=== PATIENT | female | born 1965 | race Caucasian/White ===

== ENCOUNTER 2017-08-16 05:45 | Day surgery (SDC) | payer OTHER ==
[~2017-08-16] VITALS: Ht 170.2 cm; Wt 200.9 kg
[~2017-08-16 05:45] MED LIST: AMLO5 PO; ARNUITY ELLIP100 MCG; BACL10 PO; BUDE6HFA INH; Biotin 800 Mcg1 EACH PO; DIPH50 PO; DOCU100 PO; Enalapril-Hctz1 EACH PO; GABA600 PO; METF500 PO; METO50ER PO; MONT10T PO; Mobic15 MG PO; RANI150 PO; Synthroid/Le0.075 MG PO; [UNRECOGNIZED DRUG - OTHER] PO
== END 2017-08-16 09:18 | disposition home or self-care (01) ==
LOC: ORSCMMR 05:45
PROVIDERS: Surgery
PROC: 0DJD8ZZ Inspection of Lower Intestinal Tract, Via Natural or Artificial Opening Endoscopic (ICD-10-PCS; principal; 2017-08-16 07:30)
DX: Z12.11 Encounter for screening for malignant neoplasm of colon (principal); E66.01 Morbid (severe) obesity due to excess calories; J45.909 Unspecified asthma, uncomplicated; E11.9 Type 2 diabetes mellitus without complications; G47.33 Obstructive sleep apnea (adult) (pediatric); I10 Essential (primary) hypertension; Z68.44 Body mass index [BMI] 60.0-69.9, adult; Z87.891 Personal history of nicotine dependence; Z79.84 Long term (current) use of oral hypoglycemic drugs; Z79.899 Other long term (current) drug therapy
CPT/HCPCS: 82947; 93005; 93010; J7120

== ENCOUNTER 2018-12-19 08:43 | Day surgery (SDC) | payer OTHER, SELFPAY ==
[~2018-12-19] VITALS: Ht 167.6 cm; Wt 130.0 kg
[~2018-12-19 08:43] MED LIST changes: +Neurontin600 MG PO
--- NOTE | 2018-12-19 09:51 | NUR ---
12/19/18 0951 Scott Shi 1ST IV ATTEMPT IN LFA UNSUCCESSFUL, [email or web address] 2ND IV ATTEMPT IN L[facility] SUCCESSFUL, [email or web address]
[2019-02-02] MEDS ORDERED: Flonase 0.05% N16 GM (11:22)
[2019-02-02] MEDS ORDERED: DOXE25 PO (11:22)
[2019-02-02] MEDS ORDERED: VITAMIN D3/CALCIUM PO (11:23)
[2019-02-02] MEDS ORDERED: Hair, Skin & N1 EACH PO (11:23)
[2019-02-02] MEDS ORDERED: Glucosamine &1 EACH PO (11:24)
[2019-02-02] MEDS ORDERED: Provera10 MG PO (11:24)
[2019-02-02] MEDS ORDERED: SUPER B PO (11:24)
== END 2018-12-19 13:18 | disposition home or self-care (01) ==
LOC: ORSCSDS 08:43
PROVIDERS: Podiatrist Foot & Ankle Surgery
PROC: 0QSP04Z Reposition Left Metatarsal with Internal Fixation Device, Open Approach (ICD-10-PCS; principal; 2018-12-19 10:00)
PROC: 0SRP0JZ Replacement of Right Toe Phalangeal Joint with Synthetic Substitute, Open Approach (ICD-10-PCS; principal; 2018-12-19 10:00)
DX: M21.612 Bunion of left foot (principal); M20.41 Other hammer toe(s) (acquired), right foot; G47.33 Obstructive sleep apnea (adult) (pediatric); E11.9 Type 2 diabetes mellitus without complications; J45.909 Unspecified asthma, uncomplicated; I10 Essential (primary) hypertension; E03.9 Hypothyroidism, unspecified; F41.8 Other specified anxiety disorders; Z79.899 Other long term (current) drug therapy; E66.01 Morbid (severe) obesity due to excess calories; Z68.42 Body mass index [BMI] 45.0-49.9, adult; Z87.891 Personal history of nicotine dependence
CPT/HCPCS: 82947; C1713; C1769; J0171; J0690; J2250; J2704; J3010

== ENCOUNTER 2019-02-19 12:17 | Day surgery (SDC) | payer OTHER ==
[~2019-02-19] VITALS: Ht 167.6 cm; Wt 125.7 kg
[~2019-02-19 12:17] MED LIST changes: +DOXE25 PO; +Flonase 0.05% N16 GM; +Glucosamine &1 EACH PO; +Hair, Skin & N1 EACH PO; +Provera10 MG PO; +SUPER B PO; +VITAMIN D3/CALCIUM PO
[2019-02-19] MEDS ORDERED: CYAN500 SL (12:49)
[2019-02-19] MEDS ORDERED: FOLI1 PO (12:49)
--- NOTE | 2019-02-19 13:00 | NUR ---
History, Chart, Medications and Allergies reviewed before start of procedure. Patient confirms NPO status and agrees with scheduled surgery. Lungs clear T/O to Auscultation. Patient reports completing Chlorhexadine shower X2 prior to admission to hospital. Pre-Op teaching done. Pt verbalizes understanding. NO JEWELRY, CONTACTS OR HEARING DEVICES PRESENT AT ADMIT. PATIENT HAS WELL FITTING UPPER PARTIAL, THAT WE WILL DISCUSS WITH DR RUEDA. GLASSES TO PACU DURING SURGERY.
--- NOTE | 2019-02-19 13:41 | NUR ---
DIRECTOR OF ACQUISITION MARKETING REPORT COMPLETED AT BEDSIDE, RN. PATIENT UP FOR UNMEASURED VOID.
[2019-02-20 04:44] LABS: BASOPHILS ABSOLUTE AUTO 0.02 K/mm3 (0.00-0.23); BASOPHILS PERCENT AUTO 0 % (0-2); EOSINOPHILS ABSOLUTE AUTO 0.04 K/mm3 (0.00-0.68); EOSINOPHILS PERCENT AUTO 0 % (0-6); Hematocrit 32.3 % (33.0-51.0); Hemoglobin 10.5 g/dL (11.5-16.0); IMMATURE GRAN ABSOLUTE AUTO 0.04 K/mm3 (0.00-0.10); IMMATURE GRAN PERCENT AUTO 0 % (0-1); LYMPHOCYTES ABSOLUTE AUTO 1.67 K/mm3 (0.84-5.20); LYMPHOCYTES PERCENT AUTO 13 % (21-46); MONOCYTES ABSOLUTE AUTO 1.18 K/mm3 (0.16-1.47); MONOCYTES PERCENT AUTO 9 % (4-13); Mean Corpuscular HGB 28.8 pg (26.0-34.0); Mean Corpuscular HGB Conc 32.5 g/dL (31.5-36.5); Mean Corpuscular Volume 89 fL (80-100); Mean Platelet Volume 10.2 fL (9.1-12.4); NEUTROPHILS PERCENT AUTO 78 % (41-73); Platelet Count 317 K/mm3 (150-400); RDW Coefficient Variation 14.6 % (11.7-14.2); RDW Standard Deviation 46.5 fL (35.1-46.3); Red Blood Cell Count 3.64 M/mm3 (3.80-5.20); White Blood Cell Count 13.25 K/mm3 (4.00-11.30)
[2019-02-20 05:05] LABS: Anion Gap 5 mmol/L (6-16); Blood Urea Nitrogen 21 mg/dL (8-24); Bun/Creatinine Ratio 20.8 (12.0-20.0); CO2, Blood 27 mmol/L (21-32); Calcium, Blood 9.1 mg/dL (8.5-10.1); Chloride, Blood 103 mmol/L (98-108); Creatinine, Blood 1.01 mg/dL (0.40-1.00); Glomerular Filtration Rate >60 (60-); Glucose, Blood 99 mg/dL (70-99); Potassium, Blood 3.7 mmol/L (3.5-5.5); Sodium, Blood 135 mmol/L (136-145)
--- NOTE | 2019-02-20 06:42 | NUR ---
SHIFT SUMMARY PATIENT WALKED SEVERAL TIMES TO THE BR AND DOWN THE REESE FOR ABOUT 20 FEET. HE PAIN IS BEING CONTROLED WITH THE SCHEDULED AND PRN MEDICATIONS. EATING AND DRINKING WELL. RT KNEE REMAINES BANDAGED WITHOUT DRAINAGE.
--- NOTE | 2019-02-20 07:00 | NUR ---
recvd report from previous shift VINICIO Brown. pt awake in bed, a/0 x4, pleasant/cooperative, rate pain at 3/10, voiding.
[2019-02-20] MEDS ORDERED: XARELTO20 MG PO (11:11)
[2019-02-20] MEDS ORDERED: Percocet 5-3251 EACH PO (11:12)
--- NOTE | 2019-02-20 14:00 | NUR ---
PT working with patient.
--- NOTE | 2019-02-20 15:30 | NUR ---
provided pt with discharge teaching/instructions, printed materials, discharge medications, provided with prescriptions. pt states understanding of instructions. peripheral IV removed WNL. pt's mother transferred pt's belongings to awaiting vehicle. pt transported to awaiting vehicle via wheelchair
== END 2019-02-20 15:40 | disposition home or self-care (01) ==
LOC: ORSCMMR 12:17 → ORD 13:00 → ORSCMMR 13:00 → ORD 13:40 → ORSCMMR 13:40 → SURS 16:58 → ORSCMMR 02-20 15:40
PROVIDERS: Orthopaedic Surgery
PROC: 0SRD0JA Replacement of Left Knee Joint with Synthetic Substitute, Uncemented, Open Approach (ICD-10-PCS; principal; 2019-02-19 13:40)
DX: M17.12 Unilateral primary osteoarthritis, left knee (principal); Z01.818 Encounter for other preprocedural examination; I10 Essential (primary) hypertension; E11.9 Type 2 diabetes mellitus without complications; G47.33 Obstructive sleep apnea (adult) (pediatric); E03.9 Hypothyroidism, unspecified; Z87.891 Personal history of nicotine dependence; J45.909 Unspecified asthma, uncomplicated; E66.01 Morbid (severe) obesity due to excess calories; Z68.41 Body mass index [BMI] 40.0-44.9, adult; Z79.899 Other long term (current) drug therapy
CPT/HCPCS: 36415; 73560-LT; 80048; 82947; 85025; 86850; 86900; 86901; 88300; 94640; 94760; 97110; 97116; 97162; 97530; C1776; J0171; J0690; J0735; J1100; J1885; J2250; J2405; J2704; J2795; J7120

== ENCOUNTER 2019-04-27 13:27 | Day surgery (SDC) | payer OTHER ==
[~2019-04-27 13:27] MED LIST changes: +CYAN500 SL; +FOLI1 PO; +Percocet 5-3251 EACH PO; +XARELTO20 MG PO
[2019-05-15] MEDS ORDERED: NEURONTIN600 MG PO (14:59)
[2019-05-15] MEDS ORDERED: ALBU90OI INH (15:00)
== END 2019-04-27 22:53 | disposition home or self-care (01) ==
LOC: US 13:27
DX: D11.0 Benign neoplasm of parotid gland (principal); J32.8 Other chronic sinusitis; D16.4 Benign neoplasm of bones of skull and face
CPT/HCPCS: 38505; 76942; 88307

== ENCOUNTER 2019-05-22 08:17 | Day surgery (SDC) | payer OTHER ==
[~2019-05-22] VITALS: Ht 167.6 cm; Wt 122.5 kg
[~2019-05-22 08:17] MED LIST changes: +ALBU90OI INH; +NEURONTIN600 MG PO
[2019-05-22] MEDS ORDERED: RIZATRIPTAN10 MG (08:58)
[2019-05-22] MEDS ORDERED: TOPI25C (08:58)
--- NOTE | 2019-05-22 12:46 | NUR ---
05/22/19 1246 Michelle Nelson PT HAD NO C/O PAIN OR NAUSEA T/O RECOVERY. DSG C/D/I AND HAD COPIES OF ALL INST
== END 2019-05-22 12:04 | disposition home or self-care (01) ==
LOC: ORSCSDS 08:17
PROVIDERS: Podiatrist Foot & Ankle Surgery
PROC: 0SGP04Z Fusion of Right Toe Phalangeal Joint with Internal Fixation Device, Open Approach (ICD-10-PCS; principal; 2019-05-22 09:45)
PROC: 0SRP0JZ Replacement of Right Toe Phalangeal Joint with Synthetic Substitute, Open Approach (ICD-10-PCS; principal; 2019-05-22 09:45)
PROC: 0SPP04Z Removal of Internal Fixation Device from Right Toe Phalangeal Joint, Open Approach (ICD-10-PCS; principal; 2019-05-22 09:45)
PROC: 0L8V0ZZ Division of Right Foot Tendon, Open Approach (ICD-10-PCS; principal; 2019-05-22 09:45)
DX: M20.41 Other hammer toe(s) (acquired), right foot (principal); I10 Essential (primary) hypertension; E11.9 Type 2 diabetes mellitus without complications; J45.909 Unspecified asthma, uncomplicated; G47.33 Obstructive sleep apnea (adult) (pediatric); E66.01 Morbid (severe) obesity due to excess calories; Z68.41 Body mass index [BMI] 40.0-44.9, adult; Z79.899 Other long term (current) drug therapy
CPT/HCPCS: 82947; C1713; J0171; J0690; J1100; J2250; J2405; J2704; J3010; J7120

== ENCOUNTER 2019-09-14 06:45 | Day surgery (SDC) | payer OTHER ==
[~2019-09-14] VITALS: Ht 172 cm; Wt 124.1 kg
[~2019-09-14 06:45] MED LIST changes: +RIZATRIPTAN10 MG PO; +TOPI25C PO
--- NOTE | 2019-09-14 07:27 | NUR ---
History, Chart, Medications and Allergies reviewed before start of procedure.Patient confirms NPO status and agrees with scheduled surgery. Ambulatory in Day Surgery. Patient States Post-Procedure ride home has been arranged WITH SON
== END 2019-09-14 22:41 | disposition home or self-care (01) ==
LOC: ORSCMMR 06:45 → ORD 08:30 → ORSCMMR 22:41
PROVIDERS: Surgery
PROC: 0D9Q7ZX Drainage of Anus, Via Natural or Artificial Opening, Diagnostic (ICD-10-PCS; principal; 2019-09-14 08:30)
DX: K61.0 Anal abscess (principal); G47.33 Obstructive sleep apnea (adult) (pediatric); E11.9 Type 2 diabetes mellitus without complications; I10 Essential (primary) hypertension; J45.909 Unspecified asthma, uncomplicated; E03.9 Hypothyroidism, unspecified; F41.8 Other specified anxiety disorders; E66.01 Morbid (severe) obesity due to excess calories; Z68.41 Body mass index [BMI] 40.0-44.9, adult; Z79.899 Other long term (current) drug therapy; Z87.891 Personal history of nicotine dependence
CPT/HCPCS: A9270-GY; J0295; J1100; J2250; J2405; J2704; J3010; J7120

== ENCOUNTER 2020-04-14 07:22 | Day surgery (SDC) | payer OTHER ==
[~2020-04-14] VITALS: Ht 170.2 cm; Wt 129.8 kg
[~2020-04-14 07:22] MED LIST changes: -BUDE6HFA INH; +Biotin800 MCG PO; +CALCIUM-FOLIC1 EACH PO; +FIBER FORMULA PO; +Lyrica100 MG PO; +MULTIPLE VITAM1 EACH PO; +SYMBICORT 160-4.6 GM INH; +Vitamin B Comple1 EA PO; +Voltaren100 GM TOP; +XARELTO10 MG PO
--- NOTE | 2020-04-14 08:14 | NUR ---
Ambulatory in Day Surgery History, Chart, Medications and Allergies reviewed before start of procedure. Lungs clear T/O to Auscultation. Pre-Op teaching done. Pt verbalizes understanding.
--- NOTE | 2020-04-14 12:13 | NUR ---
Discharge instructions reviewed with patient. Patient verbalizes understanding. Copy given to patient to take home. Discharged via wheelchair to private car for ride home.
== END 2020-04-14 12:15 | disposition home or self-care (01) ==
LOC: ORSCMMR 07:22 → ORD 09:00 → ORSCMMR 12:15
PROVIDERS: Surgery
PROC: 0FT44ZZ Resection of Gallbladder, Percutaneous Endoscopic Approach (ICD-10-PCS; principal; 2020-04-14 09:00)
DX: K80.10 Calculus of gallbladder with chronic cholecystitis without obstruction (principal); I10 Essential (primary) hypertension; E11.9 Type 2 diabetes mellitus without complications; E03.9 Hypothyroidism, unspecified; J44.9 Chronic obstructive pulmonary disease, unspecified; G47.33 Obstructive sleep apnea (adult) (pediatric); E66.01 Morbid (severe) obesity due to excess calories; Z68.41 Body mass index [BMI] 40.0-44.9, adult; Z87.891 Personal history of nicotine dependence; Z79.899 Other long term (current) drug therapy; Z85.3 Personal history of malignant neoplasm of breast
CPT/HCPCS: 82947; 88304; J0694; J1100; J1885; J2250; J2405; J2704; J2710; J3010; J7120

== ENCOUNTER → 2020-11-28 | Outpatient (CLI) | payer OTHER | LOC: LAB 18:12 → LAB SHORT 18:12 | DX: N89.8 Other specified noninflammatory disorders of vagina (principal) | CPT/HCPCS: 87070; 87205 ==

== ENCOUNTER → 2020-12-07 | Outpatient (CLI) | payer OTHER ==
[2020-12-08 09:26] LABS: Candida species (DNA Probe) Negative (NEGATIVE); G. vaginalis (DNA Probe) Negative (NEGATIVE); T. vaginalis (DNA Probe) Positive (NEGATIVE)
== END | disposition home or self-care (01) ==
LOC: LAB 16:33 → LAB SHORT 16:33
PROVIDERS: Obstetrics & Gynecology
DX: N89.8 Other specified noninflammatory disorders of vagina (principal)
CPT/HCPCS: 87480; 87510; 87660

== ENCOUNTER → 2021-01-11 | Outpatient (CLI) | payer OTHER ==
[2021-01-12 10:24] LABS: Candida species (DNA Probe) Negative (NEGATIVE); G. vaginalis (DNA Probe) Negative (NEGATIVE); T. vaginalis (DNA Probe) Positive (NEGATIVE)
== END | disposition home or self-care (01) ==
LOC: LAB 15:36 → LAB SHORT 15:36
PROVIDERS: Obstetrics & Gynecology
DX: Z11.3 Encounter for screening for infections with a predominantly sexual mode of transmission (principal); N89.8 Other specified noninflammatory disorders of vagina
CPT/HCPCS: 87070; 87205; 87480; 87510; 87660

== ENCOUNTER → 2021-08-22 | Outpatient (CLI) | payer OTHER | END | disposition home or self-care (01) | LOC: LAB SHORT 12:07 → PLD 12:07 | DX: L72.9 Follicular cyst of the skin and subcutaneous tissue, unspecified (principal) | CPT/HCPCS: 88304 ==

== ENCOUNTER → 2021-09-09 | Outpatient (CLI) | payer OTHER ==
[2021-09-09 15:57] LABS: Adenovirus F 40/41 Not Detected (NOT DETECT); Astrovirus Not Detected (NOT DETECT); Campylobacter Sp Not Detected (NOT DETECT); Cryptosporidium Not Detected (NOT DETECT); Cyclospora Cayetanensis Not Detected (NOT DETECT); E. Coli O157 Not Detected (NOT DETECT); Entamoeba Histolytica Not Detected (NOT DETECT); Enteroaggregative E. coli-EAEC Not Detected (NOT DETECT); Enteropathogenic E. coli-EPEC Not Detected (NOT DETECT); Enterotoxigenic E. coli-ETEC Not Detected (NOT DETECT); Giardia Lamblia Not Detected (NOT DETECT); Norovirus GI/GII Not Detected (NOT DETECT); Plesiomonas Shigelloides Not Detected (NOT DETECT); Rotavirus A Not Detected (NOT DETECT); Salmonella Sp Not Detected (NOT DETECT); Sapovirus Not Detected (NOT DETECT); Shiga Toxin-prod E. coli-STEC Not Detected (NOT DETECT); Shigella/Enteroin E. coli-EIEC Not Detected (NOT DETECT); Vibrio Cholerae Not Detected (NOT DETECT); Vibrio Sp Not Detected (NOT DETECT); Yersinia Enterocolitica Not Detected (NOT DETECT)
== END ==
LOC: LAB 06:00 → LAB SHORT 06:00
PROVIDERS: Family Medicine
DX: R19.7 Diarrhea, unspecified (principal)
CPT/HCPCS: 87324; 87507

== ENCOUNTER → 2021-10-07 | Outpatient (CLI) | payer OTHER ==
[2021-10-08 12:06] LABS: C DIFFICILE DNA POSITIVE (Negative)
== END | disposition home or self-care (01) ==
LOC: LAB 12:20 → LAB SHORT 12:20
PROVIDERS: Family Medicine
DX: A09 Infectious gastroenteritis and colitis, unspecified (principal)
CPT/HCPCS: 87324; 87493

== ENCOUNTER → 2021-12-13 | Outpatient (CLI) | payer OTHER ==
[2021-12-13 14:36] LABS: C DIFFICILE DNA POSITIVE (Negative)
== END | disposition home or self-care (01) ==
LOC: LAB SHORT 08:35 → EDSTATUS 12-11 14:55 → LAB FUT 12-11 14:55
PROVIDERS: Family Medicine
DX: R19.7 Diarrhea, unspecified (principal)
CPT/HCPCS: 87324; 87493

== ENCOUNTER 2022-10-11 08:41 | Inpatient (IN) | payer OTHER ==
[~2022-10-11] VITALS: Ht 162.6 cm; Wt 139.2 kg
[2022-10-11] VITALS (38 sets, daily range): BP systolic 53–152; BP diastolic 37–127
[2022-10-11 09:04] LABS: Hemoglobin 9.8 g/dL (11.5-16.0); Mean Corpuscular HGB 28.3 pg (26.0-34.0); Mean Corpuscular HGB Conc 30.6 g/dL (31.5-36.5); Mean Corpuscular Volume 93 fL (80-100); Mean Platelet Volume 10.9 fL (9.1-12.4); NRBC ABSOLUTE 0.06 K/mm3 (0.00-0.02); NRBC Auto 0.2 /100 WBC (0.0-0.2); Platelet Count 334 K/mm3 (150-400); RDW Coefficient Variation 14.6 % (11.7-14.2); RDW Standard Deviation 49.4 fL (35.1-46.3); Red Blood Cell Count 3.46 M/mm3 (3.80-5.20); White Blood Cell Count 28.72 K/mm3 (4.00-11.30)
[2022-10-11 09:08] LABS: Source, Urine Foley catheter
[2022-10-11 09:10] LABS: Calcium, Ionized (POC) 1.18 mmol/L (1.10-1.46); Chloride (POC) 111 mmol/L (98-108); Creatinine (POC) 0.9 mg/dL (0.6-1.0); Glucose (ISTAT POC) 151 mg/dL (70-99); Hemoglobin (POC) 10.9 g/dL (12.0-16.0); Potassium (POC) 3.7 mmol/L (3.5-5.5); Sodium (POC) 143 mmol/L (135-148); Total CO2 (POC) 16 mmol/L (21-32)
[2022-10-11 09:14] LABS: Appearance, Urine Clear (Clear); Bilirubin, Urine Neg (Neg); Blood, Urine 5+ (Neg); Color, Urine Amber (P-Yellow); Glucose Qualitative, Urine Neg (Neg); Ketones, Urine Neg (Neg); Leukocyte Esterase, Urine 2+ (Neg); Nitrite, Urine Neg (Neg); Protein, Urine 2+ (Neg); Urobilinogen, Urine 2+ (Normal)
[2022-10-11 09:18] LABS: PCO2 Arterial 36.4 mmHg (35-45); PO2 Arterial 263 mmHg (80-100); pH Blood Arterial 7.13 (7.35-7.45)
[2022-10-11 09:24] LABS: Amorphous Light (0-Heavy); Bacteria Few /hpf; Mucus Heavy (0-Heavy); Squamous Epithelial Cells Not Seen /hpf (Few)
[2022-10-11 09:25] LABS: Calcium Oxalate Crystals Rare /hpf
[2022-10-11 09:26] LABS: Albumin, Blood 1.4 g/dL (3.4-5.0); Albumin/Globulin Ratio 0.4 (0.8-1.8); Bilirubin, Total 0.8 mg/dL (0.1-1.0); Bun/Creatinine Ratio 11.2 (12.0-20.0); Calcium, Blood 8.3 mg/dL (8.5-10.1); Creatinine, Blood 0.89 mg/dL (0.40-1.00); Globulin, Blood 3.3 g/dL (2.2-4.0); Magnesium, Blood 2.3 mg/dL (1.6-2.4); Potassium, Blood 3.9 mmol/L (3.5-5.5); Total Protein, Blood 4.7 g/dL (6.4-8.2)
[2022-10-11 09:31] LABS: BAND PERCENT MAN 7 % (0-8); BASOPHILS PERCENT MAN 0 % (0-2); EOSINOPHILS PERCENT MAN 0 % (0-6); LYMPHOCYTES % ATYPICAL MANUAL 3 % (0-0); LYMPHOCYTES ABSOLUTE MAN 6.89 K/mm3 (0.84-5.20); LYMPHOCYTES PERCENT MAN 21 % (21-46); MONOCYTES ABSOLUTE MAN 1.14 K/mm3 (0.16-1.47); MONOCYTES PERCENT MAN 4 % (4-13); NEUTROPHILS ABSOLUTE MAN 20.67 K/mm3 (1.96-9.15); SEG NEUTROPHILS PERCENT MAN 65 % (41-73); TOTAL CELLS COUNTED 100
--- NOTE | 2022-10-11 10:10 | NUR ---
Patient's family is in the consult rm, Patient's mother Lady and son Cem are worried and have many questions. They share about the events that led to the patient's hospitalization and discuss the medical issues she has been experiencing over the last yr and a 1/2. I assure them about the excellence of our ED staff and the process of gathering data that makes for a challenging waiting period but is crucial for moving the patient toward the best plan of care. I normalize their experience and provide therapeutic listening and prayer. Family respond well and show signs of reduced stress.
[2022-10-11] MEDS ORDERED: OMEP20ER PO ×2 (12:24→12:28)
[2022-10-11] MEDS ORDERED: DOXE25 PO (12:27)
[2022-10-11] MEDS ORDERED: SUCR1 PO (12:27)
[2022-10-11] MEDS ORDERED: PREG200 PO (12:27)
[2022-10-11] MEDS ORDERED: PROC5 PO (12:28)
[2022-10-11 12:35] LABS: Bun/Creatinine Ratio 12.2 (12.0-20.0); Calcium, Blood 7.6 mg/dL (8.5-10.1); Creatinine, Blood 0.9 mg/dL (0.40-1.00); Potassium, Blood 4.1 mmol/L (3.5-5.5)
--- NOTE | 2022-10-11 13:27 | NUR ---
CARE ASSUMPTION PT ARRIVED TO ICU 7 FROM ER. PT IS ON VENT AC/VC+ 18/450/5.0 W 40% FIO2. PT HAS EYES OPEN W NO PUILLARY RESPONSE. PT HAS NO RESPONSE TO PAINFUL STIMULI. PT W NO GAG REFLEX. PT HAS RICK CATHETER THAT IS PATENT AND DRAINING. LEVOPHED GTT RUNNING AT [address] VALDEZ AT BEDSIDE.
[2022-10-11 13:44] LABS: Percent Saturation 61.1 % (15.0-50.0)
[2022-10-11 16:21] LABS: C DIFFICILE DNA POSITIVE (Negative)
--- NOTE | 2022-10-11 17:25 | NUR ---
pt on vent kps score is 30%. Review with family want full treatment. updated family of decline they are all in room. pt on tree pressors and BP declining. Will continue to support family with acceptance of decline. encouraging no cpr due to her fractures.
[2022-10-11 17:51] LABS: Base Excess Venous -19.9 mmol/L; Bicarbonate Venous 10.9 mmol/L (24.0-30.0); PCO2 Venous 27.7 mmHg (38-42); pH Blood Venous 7.13 (7.34-7.37)
--- NOTE | 2022-10-11 18:12 | NUR ---
DAYSHIFT SUMMARYSINCE ARRIVING FROM ER PT HAS BECOME MORE HYPOTENSIVE REQUIRING LEVO GTT AT 30, VASOPRESSIN AT 0.04, AND EPI GTT AT 2MCG/MIN. CENTRAL LINE WAS PLACED BY DR. VALDEZ. PT RECIEVED NS BOLUS X3 SINCE ARRIVING TO ICU. PT HAVING VERY LARGE AMOUNTS OF WATERY LIQUID STOOL THIS SHIFT, C-DIFF SENT TO LAB AND CAME BACK POSITIVE, PT HAS RECTAL TUBE IN PLACE AND DRAINING WATERY BROWN STOOL. RICK CATHETER ONLY HAVING 100ML OF ARK IFRAH URINE OUT THIS SHIFT. BP STABLE THIS AFTERNOON ON ALL [address] 100'S W FREQUENT PVC'S, OCCASIONAL BIGEMINY. END TIDAL CO2 19-23. FAMILY AT BEDSIDE FOR LAST COUPLE HOURS OF THE SHIFT, PALLIATIVE CARE ASSISTING FAMILY W ANY QUESTIONS. PT ON VENT 14/450/5.0 W 100% FIO2. PT HAVING AGONAL BREATHS W OCCASIONAL HEAD JERKING. PT HAS NO RESPONSE TO PAINFUL STIMULI. EYES REMAINED OPEN W FIXED PUPILS. PT HAS NO GAG REFLEX. PT DID HAVE ONE EPISODE WHERE SHE WAS TURNED AND A LARGE AMOUNT OF BLOODY SALIVA FELL FROM HER MOUTH. WILL REPORT TO ONCOMING RN.
--- NOTE | 2022-10-11 20:00 | NUR ---
ASSUMPTION OF CARE NOTE AT BEGINNING OF SHIFT PT APPEARS RESTING COMFORTABLY WITH A FRIEND AT BEDSIDE. NO RESPONSE TO PAIN, NO GAG OR COUGH PRESENT. PUPILS NONREACTIVE AND FIXED. PT WITH 7.0 ETT ON VENT AT AC/VC 14,10/5, 100% FIO2. COARSE LUNG SOUNDS THROUGHOUT. MODERATE AMOUNT OF SANTANA/BLOODY SECRETIONS ON SUCTION. PT ON LEVO AT 30 MCG/MIN, EPI AT 2MCG/MIN AND VASOPRESSIN AT.04 UNITS/MIN. BPS CURRENTLY STABLE. HR CURRENTLY 140S IN SINUS TACH. TEMP CURRENTLY 100.4 AND HAS BEEN RISING PER DAYSHIFT. PER MD NO COOLING PROTOCOL IN PLACE D/T INFECTION. PT IS POSITIVE FOR C-DIFF WITH RECTAL TUBE IN PLACE. RICK DRAINING IFRAH URINE TO GRAVITY. PT'S MOTHER TO BE AT BEDSIDE LATER
[2022-10-11 22:03] LABS: Hematocrit 38.3 % (33.0-51.0); Hemoglobin 11.7 g/dL (11.5-16.0); Mean Corpuscular HGB 28.1 pg (26.0-34.0); Mean Corpuscular HGB Conc 30.5 g/dL (31.5-36.5); Mean Corpuscular Volume 92 fL (80-100); Mean Platelet Volume 10.6 fL (9.1-12.4); NRBC ABSOLUTE 0.08 K/mm3 (0.00-0.02); NRBC Auto 0.1 /100 WBC (0.0-0.2); Platelet Count 500 K/mm3 (150-400); RDW Coefficient Variation 15.1 % (11.7-14.2); RDW Standard Deviation 51.8 fL (35.1-46.3); Red Blood Cell Count 4.17 M/mm3 (3.80-5.20)
[2022-10-11 22:24] LABS: White Blood Cell Count 57.55 K/mm3 (4.00-11.30)
[2022-10-11 22:25] LABS: Albumin, Blood 2.8 g/dL (3.4-5.0); Anion Gap 17 mmol/L (6-16); Blood Urea Nitrogen 13 mg/dL (8-24); Bun/Creatinine Ratio 10.3 (12.0-20.0); CO2, Blood 9 mmol/L (21-32); Calcium, Blood 8.2 mg/dL (8.5-10.1); Chloride, Blood 117 mmol/L (98-108); Creatinine, Blood 1.26 mg/dL (0.40-1.00); Glomerular Filtration Rate 49 (60-); Glucose, Blood 209 mg/dL (70-99); Phosphorus, Blood 4.9 mg/dL (2.5-4.9); Potassium, Blood 4.1 mmol/L (3.5-5.5); Sodium, Blood 143 mmol/L (136-145)
--- NOTE | 2022-10-11 22:30 | NUR ---
UPDATE SPOKE WITH DR. VALDEZ REGARDING [facility] LABS FOR PT (WBC 57.55, CO2 9), PT HIGH TEMP, AND TACHYCARDIA (HR 150S) . NO NEW ORDERS REGARDING LABS. OK'D TO PLACE COOLING BLANKET ON PT. ORDER TO GIVE IV METOPROLOL FOR TACHYCARDIA, BUT FIRST ATTEMPT TO WEAN PT OFF OF EPI GTT.
[2022-10-11 22:51] LABS: BAND PERCENT MAN 26 % (0-8); BASOPHILS PERCENT MAN 0 % (0-2); EOSINOPHILS PERCENT MAN 0 % (0-6); LYMPHOCYTES ABSOLUTE MAN 1.15 K/mm3 (0.84-5.20); LYMPHOCYTES PERCENT MAN 2 % (21-46); METAMYELOCYTE ABSOLUTE MAN 1.15 K/mm3 (0.00-0.00); METAMYELOCYTE PERCENT MAN 2 % (0-0); MONOCYTES ABSOLUTE MAN 2.87 K/mm3 (0.16-1.47); MONOCYTES PERCENT MAN 5 % (4-13); NEUTROPHILS ABSOLUTE MAN 52.37 K/mm3 (1.96-9.15); SEG NEUTROPHILS PERCENT MAN 65 % (41-73); TOTAL CELLS COUNTED 100
[2022-10-12] VITALS (77 sets, daily range): BP systolic 72–165; BP diastolic 42–131
[2022-10-12 03:59] LABS: Hematocrit 29.3 % (33.0-51.0); Hemoglobin 9.8 g/dL (11.5-16.0); Mean Corpuscular HGB 28.8 pg (26.0-34.0); Mean Corpuscular HGB Conc 33.4 g/dL (31.5-36.5); NRBC ABSOLUTE 0.09 K/mm3 (0.00-0.02); NRBC Auto 0.2 /100 WBC (0.0-0.2); Platelet Count 442 K/mm3 (150-400); RDW Coefficient Variation 15.1 % (11.7-14.2); RDW Standard Deviation 48.1 fL (35.1-46.3); White Blood Cell Count 47.74 K/mm3 (4.00-11.30)
[2022-10-12 04:31] LABS: Albumin, Blood 2.4 g/dL (3.4-5.0); Bilirubin, Total 2.6 mg/dL (0.1-1.0); Bun/Creatinine Ratio 11.2 (12.0-20.0); Calcium, Blood 7.3 mg/dL (8.5-10.1); Creatinine, Blood 1.34 mg/dL (0.40-1.00); Globulin, Blood 2.5 g/dL (2.2-4.0); Potassium, Blood 3.4 mmol/L (3.5-5.5); Total Protein, Blood 4.9 g/dL (6.4-8.2)
[2022-10-12 04:42] LABS: Mean Corpuscular Volume 86 fL (80-100)
[2022-10-12 05:07] LABS: PCO2 Arterial 25.4 mmHg (35-45); pH Blood Arterial 7.36 (7.35-7.45)
[2022-10-12 05:08] LABS: PO2 Arterial < 500 mmHg (80-100)
--- NOTE | 2022-10-12 06:19 | NUR ---
SHIFT SUMMARY NEURO STATUS REMAINS UNCHANGED. EPI GTT TURNED OFF, VASO REMAINS AT .04UNITS/MIN AND LEVO HAS BEEN TITRATED DOWN TO 8MCG/MIN WITH BPS 110S/80S. HR REMAINS ELEVATED IN 130S. TEMP HAS DECREASED SINCE BEGINNING OF SHIFT TO 100.3. VENT SETTINGS CURRENTLY AC/PC 14, 450, 10/8, 50% FIO2. SPO2 MONITOR NOT READING CORRECTLY D/T VASOCONSTRITION. CONSIDER SERIAL ABGS FOR MORE ACCURATE READINGS. GI OUTPUT HAS SLOWED TO ROUGHLY 300 OUT OVERNIGHT. URINE OUTPUT REMAINS LOW. BICARB RUNNING FOR pH BALANCE. MOTHER AT BEDSIDE.
--- NOTE | 2022-10-12 07:10 | NUR ---
CARE ASSUMPTION DURING BEDSIDE SHIFT REPORT WITH SELINA RN'S THE PT IS LYING IN BED INTUBATED AND ON THE VENTILATOR. PT HAS LEVOPHED RUNNING AT 8MCG/MIN, VASOPRESSIN AT 0.04 UNITS/MIN, AND SODIUM BICARB AT 200ML/HR. BP WNL AND STABLE AT THIS TIME. MONITOR SHOWING ST 120'S. VENT ON AC/PC W FIO2 AT 50%. PT'S MOTHER IN THE RM AT THIS TIME.
[2022-10-12 09:12] LABS: Base Excess Venous -9.2 mmol/L; Bicarbonate Venous 17.4 mmol/L (24.0-30.0); pH Blood Venous 7.27 (7.34-7.37)
--- NOTE | 2022-10-12 10:00 | NUR ---
Spiritual care visit conducted. Patient is lying in bed and minimally responsive. Patient's son Cem is present. He speaks about how he is processing and responding to what his mother is going through. He expresses his worry and lack of self care. I encourage self-care, normalize his experience, and provide therapeutic listening, anxiety containment and prayer. He responds well and showed signs of greater peace. Spiritual care will remain available to patient and family.
--- NOTE | 2022-10-12 10:32 | NUR ---
"Spiritual Care | Family Support Pt. is resting and not responsive. Knowing Manager Truck Anuj had seen Pt. this recreation facility attendant simply offered to be available to family as needed. family verbalized gratitude for the on-going spiritual care support."
[2022-10-12 16:31] LABS: Vancomycin, Random 32.7 ug/mL
--- NOTE | 2022-10-12 17:02 | NUR ---
UPDATE DR. TRAN CALLED AND INFORMED THAT THE C-DIFF TOXIN RESULTED NEGATIVE. PER DR. TRAN WE ARE GOING TO CONTINUE WITH THE RECTAL VANCOMYCIN AND IV FLAGYL. PHARMACIST CHEKO NOTIFIED.
--- NOTE | 2022-10-12 18:50 | NUR ---
DAYSHIFT SUMMARY PT REMAINS UNRESPONSIVE THIS SHIFT. PT'S EYES REMAIN OPEN UNLESS HER EYELIDS ARE MANUALLY SHUT. PUPILS DID HAVE SOME MINOR REACTION TO LIGHT THIS SHIFT. NO CORNEAL REFLEX PRESENT. NO GAG OR COUGH REFLEX PRESENT. PT HAS NO RESPONSE TO PAINFUL STIMULI. PT IN VENTILATOR W BACKUP RATE OF 14 HOWEVER PT'S RR HAS BEEN IN THE 20'S-30'S THIS SHIFT. VENT ON PRESSURE CONTROL W INSPIRATORY PRESSURE OF 14, PEEP OF 8.0 AND 70% FIO2. BP WNL THIS SHIFT ON LEVOPHED AND VASOPRESSIN. LEVOPHED TITRATED FROM 8 TO 10 THIS AM BUT WAS TITRATED DOWN TO 6 THIS AFTERNOON. VASOPRESSIN RUNNING ALL SHIFT AT 0.04UNITS/MIN. BICARB GTT IN D5 RUNNING AT 200ML/HR THIS SHIFT UNTIL CPN STARTED THIS AFTERNOON AND BICARB GTT WAS TURNED DOWN TO 100ML/HR PER MD ORDER. CBG'S STABLE, PT REQUIRING INSULIN COVERAGE ONCE THIS SHIFT. PT'S TEMP WAS ELEVATED THIS SHIFT UP TO 101.0 SO COOOLING BLANKET PLACED ON THE PT AND TEMP HAS TRENDED DOWN AND IS NOW WNL, COOLING BLANKET IS OFF. PT HAD EEG THIS SHIFT, RESULTS PENDING. C-DIFF TOXIN RESULTED NEGATIVE BUT ABX WILL REMAIN THE SAME PER DR. TRAN. PICC LINE PLACED THIS SHIFT AND CENTRAL LINE WAS REMOVED DUE TO QUESTIONABLE PLACEMENT PER RADIOLOGY. PT'S RICK CATHETER PATENT AND DRAINED 200ML DARK IFRAH URINE THIS SHIFT. RECTAL TUBE DRAING 200ML LIQUID BROWN STOOL THIS SHIFT. FAMILY AT BEDSIDE THIS SHIFT. WILL REPORT TO ONCOMING RN.
--- NOTE | 2022-10-12 20:00 | NUR ---
ASSUMPTION OF CARE NOTE FAMILY MEMBERS IN ROOM AT BEGINNING OF SHIFT. PT STILL NOT RESPONSIVE TO NOXIOUS STIMULI. NEGLIGABLE PUPIL RESPONSE WITH FIXED GAZE. LIMBS ARE FLACCID. PT INTUBATED WITH 7.0 ETT 24CM AT LIP. VENT SETTINGS AC/PC: 14, 10/8, 45% FIO2. COPIOUS CLEAR ORAL SECRETIONS. LUNG SOUNDS DIMINISHED. HR TACHYCARDIC IN LOW 100S. BPS 130S/100S WITH VASO GTT .04UNITS/MIN AND LEVO GTT 6MCG/MIN. PT IS AFEBRILE WITH NO COOLING MECHANISMS IN PLACE. RICK IN PLACE DRAINING TO GRAVITY WITH LOW URINE OUTPUT. RECTAL TUBE IN PLACE CURRENTLY CLAMPED WITH VANCO ENEMA INJECTED FOR C-DIFF INFECTION. DIFFICULTY READING SPO2 D/T EXTREMITY PERFUSION.
[2022-10-13] VITALS (85 sets, daily range): BP systolic 59–172; BP diastolic 38–158
[2022-10-13 03:53] LABS: BASOPHILS ABSOLUTE AUTO 0.06 K/mm3 (0.00-0.23); BASOPHILS PERCENT AUTO 0 % (0-2); EOSINOPHILS ABSOLUTE AUTO 0.21 K/mm3 (0.00-0.68); EOSINOPHILS PERCENT AUTO 1 % (0-6); Hematocrit 27.7 % (33.0-51.0); Hemoglobin 9.3 g/dL (11.5-16.0); IMMATURE GRAN ABSOLUTE AUTO 0.55 K/mm3 (0.00-0.10); IMMATURE GRAN PERCENT AUTO 3 % (0-1); LYMPHOCYTES ABSOLUTE AUTO 0.94 K/mm3 (0.84-5.20); LYMPHOCYTES PERCENT AUTO 4 % (21-46); MONOCYTES ABSOLUTE AUTO 0.84 K/mm3 (0.16-1.47); MONOCYTES PERCENT AUTO 4 % (4-13); Mean Corpuscular HGB 28.3 pg (26.0-34.0); Mean Corpuscular HGB Conc 33.6 g/dL (31.5-36.5); Mean Corpuscular Volume 84 fL (80-100); Mean Platelet Volume 12.3 fL (9.1-12.4); NEUTROPHILS PERCENT AUTO 88 % (41-73); NRBC ABSOLUTE 0.03 K/mm3 (0.00-0.02); NRBC Auto 0.1 /100 WBC (0.0-0.2); Platelet Count 237 K/mm3 (150-400); RDW Coefficient Variation 15.2 % (11.7-14.2); RDW Standard Deviation 46.3 fL (35.1-46.3); Red Blood Cell Count 3.29 M/mm3 (3.80-5.20)
[2022-10-13 04:18] LABS: Magnesium, Blood 1.7 mg/dL (1.6-2.4)
[2022-10-13 04:56] LABS: Alanine Aminotransfer (ALT/SGP 275 U/L (12-78); Albumin, Blood 1.9 g/dL (3.4-5.0); Albumin/Globulin Ratio 0.7 (0.8-1.8); Alk Phos 89 U/L (50-136); Anion Gap 10 mmol/L (6-16); Aspartate Aminotrans (AST/SGOT 1141 U/L (12-37); Bilirubin, Total 1.8 mg/dL (0.1-1.0); Blood Urea Nitrogen 17 mg/dL (8-24); Bun/Creatinine Ratio 10.2 (12.0-20.0); CO2, Blood 23 mmol/L (21-32); Calcium, Blood 7.3 mg/dL (8.5-10.1); Chloride, Blood 107 mmol/L (98-108); Creatinine, Blood 1.67 mg/dL (0.40-1.00); Globulin, Blood 2.6 g/dL (2.2-4.0); Glomerular Filtration Rate 35 (60-); Glucose, Blood 180 mg/dL (70-99); Potassium, Blood 2.8 mmol/L (3.5-5.5); Sodium, Blood 140 mmol/L (136-145); Total Protein, Blood 4.5 g/dL (6.4-8.2); Triglycerides 154 mg/dL (30-160)
[2022-10-13 04:58] LABS: Phosphorus, Blood 1.9 mg/dL (2.5-4.9)
--- NOTE | 2022-10-13 05:30 | NUR ---
UPDATE CALL MADE TO DR TRAN REGARDING AM LABS OF POTASSIUM AND PHOS. NEW ORDERS PROVIDED.
[2022-10-13 05:32] LABS: PCO2 Arterial 38.5 mmHg (35-45); PO2 Arterial 132 mmHg (80-100)
--- NOTE | 2022-10-13 06:31 | NUR ---
SHIFT SUMMARY NO CHANGE TO NEURO STATUS OVERNIGHT. VENT SETTINGS AC/PC 14, 14/8, 40%FIO2. SHALLOW TACHYPNIC BREATHS WHEN ON LEFT SIDE. DID GIVE FENTANYL TO ALEVIATE POTENTIAL PAIN WITH LITTLE IMPROVEMENT, DID SEE IMPROVEMENT WHEN REPOSITIONED TO RIGHT SIDE. HEART RATE IN 90S BY END OF SHIFT NORMAL SINUS RYTHYM. VASO AT .04 UNITS/MIN, LEVO AT 10 MCG/MIN. ATTEMPTED TO TURN OFF VASO AND SAW A SIGNIFICANT DROP IN PRESSURES SO VASO WAS RESUMED. VARIOUS TITRATIONS OF LEVO THROUGHOUT THE NIGH (SEE FLOWSHEET) PRESSURES WERE VARY LABILE. RICK DRAINING TO GRAVITY WITH LITTLE OUTPUT. RECTAL TUBE ALSO IN PLACE AND DRAINING. REDDENED AREAS UNDER PANNUS AND BREAST, ATTEMPTING TO KEEP DRY WITH PILLOW CASES. FAMILY TO BE IN THIS AM
--- NOTE | 2022-10-13 09:55 | NUR ---
CARE ASSUMPTION DURING BEDSIDE SHIFT REPORT WITH ALVIN RN'S THE PT IS LYING IN BED INTUBATED ON THE VENTILATOR. VENTILATOR IS ON AC W PC. 14/ PI-14, PEEP-8.0 W 45% FIO2. TIDAL VOLUMES <250 SO VENT CHANGED TO AC/ VC PER RT. PT HAS LEVOPHED GTT RUNNING AT 10MCG/MIN, VASOPRESSIN RUNNING AT 0.04UNITS/MIN. NA BICARB RUNNING AT 100ML/HR. MONITOR SHOWING SR IN THE 80'S. CARE ASSUMED BY THIS RN AT 0715.
--- NOTE | 2022-10-13 10:00 | NUR ---
DURING 0800 ASSESSMENT THE PT WAS FOUND TO HAVE DECREASED LUNG SOUNDS ON THE LEFT LOWER QAUDRANT. AT THIS TIME IMAGING NOTIFYING HUMAN RESOURCES DIRECTOR STACY THAT THE PT'S AM CHEST XRAY SHOWS NEW PNEUMO ON THE PT'S BRYAN LUNG. WHILE TURNING THE PT ONTO HER LEFT SIDE THE PT'S TIDAL VOLUMES DIMINISHED >100 AND SPO2 DROPPED RAPIDLY. PT PLACED ON HER BACK AND RESP STATUS STABALIZED. PT ALSO HAVING MYOCLONIC JERKING OF HER HEAD THAT HAS INCREASED IF SHE IS TAKING CONTINUAL AGONAL BREATHS OVER THE VENT. DR. TRAN NOTIFIED OF THESE FINDINGS AND HE ASSESSED THE PT AT BEDSIDE AND UPDATED THE FAMILY ON THE PT'S STATUS.
--- NOTE | 2022-10-13 16:28 | NUR ---
UPDATE THIS RN SPEAKING WITH PATIENTS MOTHER AND AUNT ABOUT WETHER THEY HAD DECIDED TO GO FORWARD WITH THE CHEST TUBE. THEY BOTH STATED THAT THEIR FAMILY HAS DECIDED NOT TO DO THE CHEST TUBE IT WOULD BE UNNECASSARY TO PUT THE PT THROUGH THAT. THIS RN DISCUSSED THAT WHILE THAT IS A REASONABLE DECESION THE PT IS AT RISK FOR RESPIRATORY COLLAPSE THAT COULD LEAD TO CARDIAC ARREST. THIS RN ASKED THEM IF THE PT'S HEART WERE TO STOP IF THEY WOULD WANT US TO DO CPR AND ATTEMPT TO RESTART HER HEART. THIS RN EDUCATED THEM ON CODE STATUS THE PT IS CURRENTLY A FULL CODE AND THEY STATED THAT "IF HER HEART STOPS THAT'S IT, WE DO NOT WANT HER TO HAVE CPR." PT'S SON NOT PRESENT AT THIS TIME AND HE IS FINAL DECESION MAKER FOR THE PT WE WILL WAIT UNTIL WE SPEAK WITH HIM TO CHANGE THE PT'S CODE STATUS. DR. TRAN NOTIFIED OF THIS CONVERSATION.
[2022-10-13 16:40] LABS: Magnesium, Blood 1.7 mg/dL (1.6-2.4); Phosphorus, Blood 2.1 mg/dL (2.5-4.9)
[2022-10-13 16:42] LABS: Vancomycin, Random 29.9 ug/mL
--- NOTE | 2022-10-13 18:31 | NUR ---
DAYSHIFT SUMMARY PT HAS REMAINED UNRESPONSIVE THIS SHIFT. PT NEGATIVE GAG/COUGH REFLEX. NO REFLEX TO PAINFUL STIMULI. NEGATIVE DOLL GAZE WHEN HER HEAD IS TURNED. NO CORNEAL REFLEX. PT PLACED ON SPONTANEOUS MODE BRIEFLY THIS SHIFT BY DR. TRAN AND PT TAKING VERY RAPID VERY SHALLOW RESP W TIDAL VOLUMES >200. MONITOR SHOWING SR IN THE 90'S THIS SHIFT. BP STABLE W LEVOPHED GTT AT 10 FOR MOST OF THE DAY BUT TITRATED DOWN TO 8MCG/MIN THIS AFTERNOON. VASOPRESSIN RUNNING AT 0.04UNIT/MIN ALL SHIFT. PEAK TEMP OF 101.0 THIS SHIFT. RECTAL VANCO BEING HELD PER DR. TRAN THIS SHIFT THE PT BECOMES VERY UNSTABLE WHEN TURNED DUE TO NEW PNEUMO, FAMILY CONSULTED THIS SHIFT BY DR. TRAN AND HAS DECIDED NOT TO PROCEED WITH THE CHEST TUBE. PT MADE DO NOT RESCUSITATE CODE STATUS THIS SHIFT PER THE FAMILY'S WISHES. PT'S FAMILY MET WITH DR. TRAN THIS SHIFT AND WERE UPDATED ON HER NEW PNEUMO AND REGRESSION OF NEURO FUNCTION, FAMILY HAS EXPRESSED THAT THEY ARE LEANING TOWARDS WITHDRAWING CARE BUT ARE NOT READY TO DO THAT AT THIS TIME. CPN RUNNING AND CBG'S STABLE THIS SHIFT. WILL REPORT TO ONCOMING RN.
--- NOTE | 2022-10-13 20:00 | NUR ---
ASSUMPTION OF CARE PT'S NEURO STATUS CONTINUES TO DECLINE. NO PUPILLARY RESPONSE. NO REFLEX OR RESPONSE TO NOXIOUS STIMULI. BREATHING HAS SLOWED TO MATCH VENTILATOR. SETTINGS CURRENTLY AC/VC: 14, 400, 8, 35% FIO2. PRESSURE 110S-120S/60S LEVO AT 8MCG/MIN, VASO AT .04 UNITS/MIN. IN NORMAL SINUS RYTHYM. LITTLE URINE OUTPUT, ALMOST NO RECTAL OUTPUT TODAY WITH ABSENT BOWEL TONES. POTENTIAL TO CHANGE TO COMFORT CARE TOMORROW, PENDING FAMILY CHOICE.
[2022-10-14] VITALS (21 sets, daily range): BP systolic 117–151; BP diastolic 69–94
[2022-10-14 04:25] LABS: Bun/Creatinine Ratio 12.8 (12.0-20.0); Calcium, Blood 6.9 mg/dL (8.5-10.1); Creatinine, Blood 1.95 mg/dL (0.40-1.00); Magnesium, Blood 2.1 mg/dL (1.6-2.4); Phosphorus, Blood 2.6 mg/dL (2.5-4.9); Potassium, Blood 3.2 mmol/L (3.5-5.5)
--- NOTE | 2022-10-14 04:45 | NUR ---
SHIFT SUMMARY NEURO STATUS CONTINUES TO DECLINE. RIGHT PUPIL NOW LARGER THAN LEFT AND NEITHER ARE RESPONSIVE. NO RESPONSE TO ANY STIMULI. VENT SETTINGS AC/VC: 16, 400, 8, 35%. COPIOUS ORAL SECRETIONS AND LEFT PNEUMOTHORAX. BPS STABLE, NO CHANGE TO PRESSORS OVERNIGHT. LEVO 8MCG/MIN, VASO .04UNITS/MIN. HEART RATE IN LOW 100S SINUS TACH. NO BOWEL TONES, PER DAYSHIFT OK TO HOLD RECTAL VANCO PT IS UNABLE TO TOLERATE TURNS TO THE LEFT SIDE. FAMILY TO DECIDE POTENTIALLY MOVING PT TO COMFORT CARE TODAY.
--- NOTE | 2022-10-14 08:00 | NUR ---
AM NOTE... ASSUMED CARE OF PT AT 0700. PT IS INTUBATED, NOT SEDATED. NO NEURO RESPONSE NOTED ON THIS ASSESSMENT. NO COUGH OR GAG. PUPILS ARE FIXED THE RIGHT IS APROX AT 4MM AND THE LEFT IS APROX AT 2MM. POSITIVE DOLLS EYES NOTED ON ASSESSMENT. NO RESPONSE TO PAINFUL STIMULI. SHE IS ON THE VENT AT AC/VC: 14/400/8/35% WITH O2 SATS >95% L/S CLEAR ON THE RIGHT SIDE, DIM ON THE LEFT. RR IS 14 WITH VERY OCC BREATHING OVER THE VENT AT A RATE OF 15-16. SHE IS IN SINUS TACH 110-115. BP IS STABLE WITH MAPS >65 LEVOPHED GTT RUNNING AT 8MCG/MIN, VASOPRESSIN RUNNING AT 0.04U/HR. 2+ EDEMA NOTED TO HER BLE. BT ARE ABSENT AT THE TIME OF THIS ASSESSMENT, RECTAL TUBE IS IN PLACE WITH SCANT OUTPUT NOTED IN THE TUBE. TEMP IS CURRENTLY 99.7. TEMP RICK IS PATENT AND DRAINING SCANT DARK IFRAH URINE TO GRAVITY. WILL CONTINUE TO MONITOR.
--- NOTE | 2022-10-14 11:48 | NUR ---
PT UPDATE.... PT'S SON CAME TO THE ROOM TO SPEAK WITH THE PT'S MOM MOIZ. PER THE PT'S SON AND THE PT'S MOM MOIZ THEY BOTH SAY THE PT WOULD NOT WANT TO CONTINUE "LIKE THIS." DR. TRAN WAS AT THE BEDSIDE AND SPOKE WITH THE PT'S MOM MOIZ. SHE STATED SHE WANTED TO WITHDRAW TO COMFORT CARE. THE PT WAS EXTUBATED AT 1109 AND PASSED AT 1130. PROVIDERS ARE AWARE.
== END 2022-10-14 14:20 | DRG 296 ==
LOC: ER 08:41 → ICUE 11:46
PROVIDERS: Emergency Medicine; Internal Medicine Critical Care Medicine; ADMIT Internal Medicine
PROC: 5A1945Z Respiratory Ventilation, 24-96 Consecutive Hours (ICD-10-PCS; principal; 2022-10-11)
PROC: 0BH17EZ Insertion of Endotracheal Airway into Trachea, Via Natural or Artificial Opening (ICD-10-PCS; 2022-10-11)
PROC: 5A12012 Performance of Cardiac Output, Single, Manual (ICD-10-PCS; 2022-10-11)
PROC: 05H433Z Insertion of Infusion Device into Left Innominate Vein, Percutaneous Approach (ICD-10-PCS; 2022-10-11)
PROC: 0T9B70Z Drainage of Bladder with Drainage Device, Via Natural or Artificial Opening (ICD-10-PCS; 2022-10-11)
PROC: 3E033XZ Introduction of Vasopressor into Peripheral Vein, Percutaneous Approach (ICD-10-PCS; 2022-10-11)
PROC: 4A133R1 Monitoring of Arterial Saturation, Peripheral, Percutaneous Approach (ICD-10-PCS; 2022-10-11)
PROC: 4A143B0 Monitoring of Venous Pressure, Central, Percutaneous Approach (ICD-10-PCS; 2022-10-11)
PROC: B54NZZA Ultrasonography of Left Upper Extremity Veins, Guidance (ICD-10-PCS; 2022-10-11)
PROC: 0DH67UZ Insertion of Feeding Device into Stomach, Via Natural or Artificial Opening (ICD-10-PCS; 2022-10-11)
PROC: 3E0G76Z Introduction of Nutritional Substance into Upper GI, Via Natural or Artificial Opening (ICD-10-PCS; 2022-10-11)
PROC: 02HV33Z Insertion of Infusion Device into Superior Vena Cava, Percutaneous Approach (ICD-10-PCS; 2022-10-13)
PROC: 05PYX3Z Removal of Infusion Device from Upper Vein, External Approach (ICD-10-PCS; 2022-10-13)
DX: I46.9 Cardiac arrest, cause unspecified (principal); J96.90 Respiratory failure, unspecified, unspecified whether with hypoxia or hypercapnia; K72.00 Acute and subacute hepatic failure without coma; J95.811 Postprocedural pneumothorax; R57.9 Shock, unspecified; E87.21 Acute metabolic acidosis; A04.72 Enterocolitis due to Clostridium difficile, not specified as recurrent; G93.1 Anoxic brain damage, not elsewhere classified; N17.9 Acute kidney failure, unspecified; Z68.43 Body mass index [BMI] 50.0-59.9, adult; M96.A3 Multiple fractures of ribs associated with chest compression and cardiopulmonary resuscitation; Z51.5 Encounter for palliative care; Z66 Do not resuscitate; E66.01 Morbid (severe) obesity due to excess calories; E03.9 Hypothyroidism, unspecified; M19.90 Unspecified osteoarthritis, unspecified site; E11.40 Type 2 diabetes mellitus with diabetic neuropathy, unspecified; G47.33 Obstructive sleep apnea (adult) (pediatric); G43.909 Migraine, unspecified, not intractable, without status migrainosus; I10 Essential (primary) hypertension; E11.65 Type 2 diabetes mellitus with hyperglycemia; E83.51 Hypocalcemia; D63.8 Anemia in other chronic diseases classified elsewhere; R94.5 Abnormal results of liver function studies; E87.6 Hypokalemia; J45.909 Unspecified asthma, uncomplicated; B96.1 Klebsiella pneumoniae [K. pneumoniae] as the cause of diseases classified elsewhere; Z98.84 Bariatric surgery status; Z90.49 Acquired absence of other specified parts of digestive tract; Z90.89 Acquired absence of other organs; Z98.890 Other specified postprocedural states; Z99.3 Dependence on wheelchair; Z96.653 Presence of artificial knee joint, bilateral; Z79.899 Other long term (current) drug therapy; Z88.5 Allergy status to narcotic agent; Z88.8 Allergy status to other drugs, medicaments and biological substances; Z85.820 Personal history of malignant melanoma of skin; Z79.51 Long term (current) use of inhaled steroids; Z88.2 Allergy status to sulfonamides; Z91.041 Radiographic dye allergy status; Z87.01 Personal history of pneumonia (recurrent); Z88.1 Allergy status to other antibiotic agents
CPT/HCPCS: 36415; 36556; 36569; 36600; 51702; 70450; 71045; 71275; 74174; 80047; 80048; 80053; 80069; 80202; 81001; 82272; 82330; 82607; 82652; 82728; 82746; 82803; 82947; 83540; 83550; 83605; 83690; 83735; 83880; 84100; 84132; 84478; 84484; 85014; 85025; 85027; 86850; 86900; 86901; 87040; 87076; 87077; 87086; 87186; 87324; 87493; 93005; 93010; 93308; 93321; 94002; 94003; 95819; 96365-59; 96366-59; 96367-59; 96375-59; 99291-25; A9270; C1751; C9113; J0171; J0692; J1200; J1650; J1815; J2060; J2270; J2543; J2930; J3010; J3370; J3411; J3475; J3480; J7030; J7040; J7050; J7060; J7070; J7120; P9047; Q9967